=== PATIENT | female | born 1975 | race African-American/Black ===

== ENCOUNTER → 2019-12-02 12:12 | Outpatient (CLI) | payer OTHER, SELFPAY ==
--- NOTE | ~2019-12-02 | XR_ITS ---
XR hand RT min 3V DATE: 12/02/2019 12:46 INDICATION: Right hand pain, including third digit. No recent injury. TECHNIQUE: 3 views COMPARISON: None FINDINGS: There are 2 metallic foreign bodies of the distal second digit, the larger approximately 2 mm foreign body situated within the tuft of the distal phalanx with surrounding lucency and a smaller triangular pointed foreign body in the contiguous medial distal soft tissues. No periosteal reaction is noted. No fracture, dislocation, periosteal reaction or bone destruction is noted otherwise. No erosive alcala ge or chondrocalcinosis. IMPRESSION: Distal second digit foreign bodies Reviewed, dictated and finalized at location B. VERY ROOM CLERK
== END ==
PROVIDERS: PCP Family Medicine; Visit Provider Family Medicine
DX: S60.450A Superficial foreign body of right index finger, initial encounter (principal); X58.XXXA Exposure to other specified factors, initial encounter
CPT/HCPCS: 73130

== ENCOUNTER 2019-12-17 14:14 | Emergency (ER) | payer OTHER, SELFPAY ==
[2019-12-17 14:40] VITALS: BP 136/96; PULSE 91; RESP 16; TEMP 37.4; O2SAT 98
--- NOTE | 2019-12-17 14:56 | ED.SKABFB ---
HPI - Skin/Abscess/Foreign Bdy General Chief complaint: Skin/Abscess/Foreign Body Stated complaint: BUMP UNDER BREAST Time Seen by Provider: 12/17/19 14:17 Source: patient Mode of arrival: ambulatory Limitations: no limitations History of Present Illness HPI narrative: This is a 44 year old female that presents to the ER for bump on left breast that she noted this morning. Reports when she was taking her bra off this morning she noted an area of pain on her left breast. Reports a small lump in the area. Reports redness to the area. Denies fever or drainage. Related Data Home Medications Medication Instructions Recorded Confirmed albuterol sulfate 90 mcg/actuation 2 puff INHALATION Q4H PRN gm 09/30/19 12/02/19 aerosol inhaler amlodipine 10 mg tablet 10 mg PO DAILY 09/30/19 12/02/19 cetirizine 10 mg tablet 10 mg PO DAILY 09/30/19 12/02/19 fluticasone propionate 44 2 puff INHALATION BID gm 09/30/19 12/02/19 mcg/actuation HFA aerosol inhaler fluticasone propionate 50 1 spray NASAL BID 09/30/19 12/02/19 mcg/actuation nasal spray,suspension lansoprazole 30 mg capsule,delayed 30 mg PO DAILY 09/30/19 12/02/19 release metoprolol succinate 100 mg 100 mg PO DAILY 09/30/19 12/02/19 capsule sprinkle, ext. release 24 hr triamcinolone acetonide 0.5 % 1 applic TOPICAL BID 09/30/19 12/02/19 topical cream Allergies Allergy/AdvReac Type Severity Reaction Status Date / Time shellfish derived Allergy Unknown Unknown Verified 05/28/18 17:19 Review of Systems Review of Systems: Narrative: CONSTITUTIONAL: Denies fever BREAST: Reports lump. Denies nipple discharge All systems reviewed & are unremarkable except as noted in HPI and below PMFSH Past Medical History Medical History (Updated 12/17/19 @ 15:24 by Maria R Gomez PA-C) Carpal tunnel syndrome Chronic GERD Essential (primary) hypertension Moderate intermittent asthma without complication MAIKEL on CPAP Pain in right hand Social History Social History Smoking status: Never smoker Alcohol intake: never Exam Narrative: Exam Narrative: GENERAL: Well-appearing, well-nourished, and in no acute distress. HEAD: Normocephalic, atraumatic. EYES: EOMI. EXTREMITIES: Normal range of motion. No edema. SKIN: Warm, dry, no rash. NEURO: No focal deficits. Alert and oriented x3. PSYCH: Normal mood and affect BREAST: Left breast with small 2cm circular area of erythema and edema, no fluctuance to suggest abscess. No other abnormal masses noted Course Vital Signs Vital signs: Vital Signs Temperature 99.4 F 12/17/19 14:40 Pulse Rate 91 12/17/19 14:40 Respiratory Rate 16 12/17/19 14:40 Blood Pressure 136/96 H 12/17/19 14:40 Pulse Oximetry 98 12/17/19 14:40 Temperature 99.4 F 12/17/19 14:40 Pulse Rate 91 12/17/19 14:40 Respiratory Rate 16 12/17/19 14:40 Blood Pressure 136/96 H 12/17/19 14:40 Pulse Oximetry 98 12/17/19 14:40 MDM - Skin/Abscess/Foreign Bdy MDM Narrative Medical decision making narrative: Patient presents to the emergency department for small area of cellulitis to the left breast. Patient is afebrile and nontoxic-appearing. No fluctuance to suggest abscess. She will be started on oral antibiotics and was instructed to follow-up with gynecology. Patient was given warnings to return to the ER Critical Care Time Critical Care Time Critical Care Time: No Discharge Plan Discharge Clinical Impression: Cellulitis Qualifiers: Site of cellulitis: other site Qualified Code(s): L03.818 - Cellulitis of other sites Patient Disposition: Home, Self-Care Condition: Stable Instructions: Antibiotic Form, Cellulitis (ED) Additional Instructions: Return if symptoms worsen or concerns; any increase in redness, swelling, pain or fever over 101 Take antibiotics as directed. Clean wound with mild soapy water. Follow up with gynecology Prescripti
[2019-12-17 15:30] VITALS: BP 124/78; PULSE 68; RESP 16; O2SAT 99
== END 2019-12-17 15:30 | disposition home or self-care (01) ==
PROVIDERS: Emergency Provider Emergency Medicine; PCP Family Medicine
DX: L03.818 Cellulitis of other sites (principal); K21.9 Gastro-esophageal reflux disease without esophagitis; I10 Essential (primary) hypertension; J45.909 Unspecified asthma, uncomplicated; G47.30 Sleep apnea, unspecified
CPT/HCPCS: 99283

== ENCOUNTER 2020-02-12 09:48 | Outpatient (CLI) | payer OTHER, SELFPAY ==
--- NOTE | 2020-02-12 11:00 | NEURO_ITS ---
Patient Number: [id number] Impression: # Complains of numbness of right hand. # Severe right Carpal Tunnel Syndrome. # Mild right ulnar neuropathy across the elbow. # Normal needle/EMG exam. Nerve Conduction Studies Anti Sensory Summary Table Stim Site NR Peak (ms) P-T Amp (?V) Site1 Site2 Delta-P (ms) Dist (cm) Felix (m/s) Right Median Anti Sensory (2-3nd Digit) Wrist 6.8 60.7 Wrist 2-3nd Digit 6.8 14.0 21 Wrist 6.1 32.1 Wrist 2-3nd Digit 6.8 14.0 21 Right Radial Anti Sensory (Base 1st Digit) Wrist 2.2 20.3 Wrist Base 1st Digit 2.2 0.0 Right Ulnar Anti Sensory (5th Digit) Wrist 2.4 68.1 Wrist 5th Digit 2.4 14.0 58 Motor Summary Table Stim Site NR Onset (ms) O-P Amp (mV) Site1 Site2 Delta-0 (ms) Dist (cm) Felix (m/s) Right Median Motor (Abd Poll Brev) Wrist 5.9 4.9 Elbow Wrist 4.7 28.0 60 Elbow 10.6 4.6 Right Ulnar Motor (Abd Dig Minimi) Wrist 2.5 4.1 A Elbow Wrist 5.8 30.0 52 A Elbow 8.3 3.2 B Elbow Wrist 4.0 22.0 55 B Elbow 6.5 3.2 F Wave Studies NR F-Lat (ms) L-R F-Lat (ms) Right Median (Mrkrs) (Abd Poll Brev) 29.71 Right Ulnar (Mrkrs) (Abd Dig Min) 27.03 EMG Side Muscle Nerve Root Ins Act Fibs Amp Dur Recrt Comment Right 1stDorInt Ulnar C8-T1 Nml Nml Nml Nml Nml Right Ext Indicis Radial (Post Int) C7-8 Nml Nml Nml Nml Nml Right Ext Digitorum Radial (Post Int) C7-8 Nml Nml Nml Nml Nml Right BrachioRad Radial C5-6 Nml Nml Nml Nml Nml Right PronatorTeres Median C6-7 Nml Nml Nml Nml Nml Right Abd Poll Brev Median C8-T1 Nml Nml Nml Nml Nml MTDD
== END 2020-02-12 09:49 | disposition home or self-care (01) ==
PROVIDERS: PCP Family Medicine; Visit Provider Family Medicine
DX: G56.01 Carpal tunnel syndrome, right upper limb (principal); G56.21 Lesion of ulnar nerve, right upper limb
CPT/HCPCS: 95886; 95909

== ENCOUNTER 2020-04-29 14:52 | Outpatient (CLI) | payer OTHER, SELFPAY ==
--- NOTE | 2020-04-29 14:55 | ECG_ITS ---
Measurements Intervals [place] Rate: 76 P: 53 LA: 192 QRS: -1 QRSD: 101 T: 1 QT: 372 QTc: 419 Interpretive Statements SINUS RHYTHM VOLTAGE CRITERIA FOR LVH POOR R WAVE PROGRESSION, ANTERIOR LEADS BORDERLINE T WAVE ABNORMALITY- INFERIOR LEADS BASELINE ARTIFACT- I, II, III, AVR, AVL, AVF BORDERLINE ECG Electronically Signed On 04-29-2020 15:47:35 CDT by Spenser Meyer D.O.
[2020-04-29 15:43] LABS: Blood Urea Nitrogen 15 mg/dL (7-17); Calcium 8.8 mg/dL (8.4-10.2); Carbon Dioxide 30 mmol/L (22-30); Chloride 101 mmol/L (98-107); Estimated Glomerular Filt Rate > 60; Glucose 122 mg/dL (65-105); Potassium 3.9 mmol/L (3.4-5.0); Sodium 138 mmol/L (137-145)
== END 2020-04-29 14:53 | disposition home or self-care (01) ==
LOC: ANHSURGERY 14:55
PROVIDERS: Anesthesiology; PCP Family Medicine; Visit Provider Orthopaedic Surgery
DX: Z01.818 Encounter for other preprocedural examination (principal); Z51.81 Encounter for therapeutic drug level monitoring; I10 Essential (primary) hypertension
CPT/HCPCS: 36415; 80048; 93005

== ENCOUNTER 2020-05-05 01:50 | Outpatient (CLI) | payer OTHER, SELFPAY ==
[2020-05-05 19:16] LABS: SARS-CoV-2 RNA PCR Negative
== END 2020-05-05 01:51 | disposition home or self-care (01) ==
LOC: ANHCOVIDDT 01:53
PROVIDERS: PCP Family Medicine; Visit Provider Orthopaedic Surgery
DX: Z01.818 Encounter for other preprocedural examination (principal); Z11.59 Encounter for screening for other viral diseases
CPT/HCPCS: 87635; C9803; U0003

== ENCOUNTER 2020-05-07 00:57 | Day surgery (SDC) | payer OTHER, SELFPAY ==
[2020-04-24 11:22] VITALS: BMI 49.4
--- NOTE | 2020-05-05 17:33 | PM.IMHP ---
H&P: HPI History of Present Illness Chief complaint: right carpal tunnel syndrome Narrative: Kristen Elmore is a 44 year old female with right hand numbness and tingling, wrist pain. Unrelieved with conservative treatment. Presents for operative treatment. Review of Systems Constitutional: Constitutional: Denies fever(s) Eyes: Eyes: Denies blurry vision ENT: Reports Normal hearing present Cardiovascular: Cardiovascular: Denies chest pain and Denies dyspnea Respiratory: Respiratory: Denies dyspnea and Denies wheezing Gastrointestinal: Gastrointestinal: Denies abdominal pain Genitourinary: Genitourinary: Denies urinary urgency Musculoskeletal: Musculoskeletal: Reports as per HPI and Denies numbness Integumentary/Breasts: Skin/Breast: Denies changing lesions and Denies sores Neurologic: Reports Normal hearing present, Denies behavioral changes, Denies confusion, Denies numbness and Denies convulsions Psychiatric: Psychiatric: Denies behavioral changes, Denies confusion and Denies hallucinations Endocrine: Endocrine: Denies heat intolerance Hematologic/Lymphatic: Hematologic/Lymphatic: Denies easy bleeding Allergic/Immunologic: Allergic/Immunologic: Denies wheezing PMFSH Past Medical History Medical History Abscess of left breast Allergic conjunctivitis Anemia Asthma Bleeding nose Carpal tunnel syndrome Chronic GERD Essential (primary) hypertension Headache High blood pressure Hoarseness Mild intermittent asthma in adult without complication Moderate intermittent asthma without complication Obstructive sleep apnea MAIKEL on CPAP Pain in right hand Sleep apnea Vision changes Family History Family History Mother Patient's mother is , Onset Age: 67 Father Patient's father is , Onset Age: 42 Other Hypertension Other Cancer Social History Social History Smoking status: Never smoker Alcohol intake: never Additional living arrangements comments: Lives with Additional occupation/education comments: [employer] Gender identity (if verbalized by the patient): Female Spiritual care concerns: No Meds Home Medications and Allergies Home Medications Medication Instructions Recorded Confirmed Type amlodipine 10 mg tablet 10 mg PO DAILY 09/30/19 04/24/20 History fluticasone propionate 50 1 spray NASAL BID 09/30/19 04/24/20 History mcg/actuation nasal spray,suspension metoprolol succinate 100 mg 100 mg PO DAILY 09/30/19 04/24/20 History capsule sprinkle, ext. release 24 hr triamterene 37.5 1 tablet PO QAM #30 tablet 10/14/19 04/24/20 Rx mg-hydrochlorothiazide 25 mg tablet meloxicam 15 mg tablet 15 mg PO DAILY PRN #30 tablet 12/02/19 04/24/20 Rx montelukast 10 mg tablet 10 mg PO DAILY #30 tablet 12/02/19 04/24/20 Rx cetirizine 10 mg tablet 10 mg PO DAILY PRN 12/30/19 04/24/20 History triamcinolone acetonide 0.5 % 1 applic TOPICAL BID PRN 12/30/19 04/24/20 History topical cream azelastine 0.05 % eye drops 1 drop EACH EYE BID PRN #6 ml 03/04/20 04/24/20 Rx fluticasone propionate 44 2 puff INHALATION BID #10.6 gm 05/04/20 Rx mcg/actuation HFA aerosol inhaler albuterol sulfate 90 mcg/actuation 2 puff INHALATION Q4H PRN #18 gm 05/05/20 Rx aerosol inhaler Allergies Allergy/AdvReac Type Severity Reaction Status Date / Time shellfish derived Allergy Unknown ITCHING, Verified 04/24/20 11:23 DIFFICULTY BREATHING Exam Const: General: cooperative, healthy appearing, no acute distress, well developed and alert; No confusion Orientation/consciousness: No confusion HENMT: Head: normal to inspection, normocephalic and atraumatic Eyes: Conjunctivae: conjunctivae normal Sclera: sclerae normal Neck: Neck: supple and no
[2020-05-07] MEDS: LACTATED RINGERS 1,000 ML 30 ML IV CONT (06:45)
--- NOTE | 2020-05-07 06:46 | WPDANESEPPF ---
Anes - Initial Pre Proc Eval Procedure: Operation Date: 05/07/20 07:30 Proposed Procedures p Right Carpal Tunnel Release - Dayron Beckett MD Date/Time: 05/07/20 06:46 Surgeon: Dayron Beckett MD Pre Op Diagnosis: right carpal tunnel syndrome Patient Data Age: 44 Gender: F Height: 5 ft 2 in Weight: 120 kg Allergies Allergy/AdvReac Type Severity Reaction Status Date / Time shellfish derived Allergy Unknown ITCHING, Verified 05/07/20 06:10 DIFFICULTY BREATHING Home Medications Medication Instructions Recorded Confirmed Type amlodipine 10 mg tablet 10 mg PO DAILY 09/30/19 04/24/20 History fluticasone propionate 50 1 spray NASAL BID 09/30/19 04/24/20 History mcg/actuation nasal spray,suspension metoprolol succinate 100 mg 100 mg PO DAILY 09/30/19 04/24/20 History capsule sprinkle, ext. release 24 hr triamterene 37.5 1 tablet PO QAM #30 tablet 10/14/19 04/24/20 Rx mg-hydrochlorothiazide 25 mg tablet meloxicam 15 mg tablet 15 mg PO DAILY PRN #30 tablet 12/02/19 04/24/20 Rx montelukast 10 mg tablet 10 mg PO DAILY #30 tablet 12/02/19 04/24/20 Rx cetirizine 10 mg tablet 10 mg PO DAILY PRN 12/30/19 04/24/20 History triamcinolone acetonide 0.5 % 1 applic TOPICAL BID PRN 12/30/19 04/24/20 History topical cream azelastine 0.05 % eye drops 1 drop EACH EYE BID PRN #6 ml 03/04/20 04/24/20 Rx fluticasone propionate 44 2 puff INHALATION BID #10.6 gm 05/04/20 Rx mcg/actuation HFA aerosol inhaler albuterol sulfate 90 mcg/actuation 2 puff INHALATION Q4H PRN #18 gm 05/05/20 Rx aerosol inhaler Patient hx anesthesia problems: none Family hx anesthesia problems: none PMFSH Past Medical History Medical History Abscess of left breast Allergic conjunctivitis Anemia Asthma Bleeding nose Carpal tunnel syndrome Chronic GERD Essential (primary) hypertension Headache High blood pressure Hoarseness Mild intermittent asthma in adult without complication Moderate intermittent asthma without complication Obstructive sleep apnea MAIKEL on CPAP Pain in right hand Sleep apnea Vision changes Family History Family History Mother Patient's mother is , Onset Age: 67 Father Patient's father is , Onset Age: 42 Other Hypertension Other Cancer Social History Social History Smoking status: Never smoker Alcohol intake: never Additional living arrangements comments: Lives with Additional occupation/education comments: [employer] Gender identity (if verbalized by the patient): Female Spiritual care concerns: No Anes - Eval Final PreProcedure Day of Procedure 05/07/20 06:46 Patient weight: morbidly obese Heart: regular rate and rhythm Lungs: clear to auscultation Airway: Mallampati scale class II Neurological: alert and oriented Last oral intake: >/= 8 hours ASA classification: III Emergent: no Anesthetic plan: proceed Anesthesia type and monitoring: general GIVS and standard monitoring Informed Consent: The patient's anesthetic plan and its attendant risks and benefits were discussed with the patient/family/POA. Questions were solicited and answers provided to the satisfaction of the patient/family/POA.
[2020-05-07] MEDS: KETOROLAC 15 MG/ML VIAL (*BKC) IV PUSH (06:59)
[2020-05-07] MEDS: ACETAMINOPHEN 500 MG TABLET 1000 MG PO (06:59)
--- NOTE | 2020-05-07 07:06 | WPDHPUPDATE1 ---
History and Physical Update Update Date/Time: 05/07/20 07:06 History and Physical has been reviewed, including an updated exam of the patient. There are NO changes in the patient's condition. Risks, benefits, and alternatives have been discussed and questions answered. Patient agrees to proceed with procedure.
[2020-05-07 07:26] VITALS: BP 129/74; PULSE 66; RESP 18; TEMP 36.6; O2SAT 99
[2020-05-07] MEDS: ceFAZolin 3 GM/D5W 100 ML 100 ML IVPB (07:26)
[2020-05-07] MEDS: BUPIVACAINE/EPINEPHRINE 0.5% 30 ML VIAL 20 ML INFILTRATE (07:53)
[2020-05-07] MEDS: LIDOCAINE HCL 2% LOCAL INJ 20 ML VIAL INFILTRATE (07:53)
[2020-05-07 08:13] VITALS: BP 134/64; PULSE 73; RESP 16; O2SAT 95
--- NOTE | 2020-05-07 08:22 | P.OP_ITS ---
Procedure Note - Detailed Date of procedure: 05/07/20 Pre-op diagnosis: right carpal tunnel syndrome Post-op diagnosis: same Procedure performed: Right carpal tunnel release Description of procedure: Preoperative Diagnosis: Right Carpal Tunnel Syndrome (G56.02) Postoperative Diagnosis: Same Procedure: Right open carpal tunnel release ([id number]) Surgeon: Sujit Assist: Speech Correction Assistant Anesthesia: MAC, local Complications: None EBL: Minimal Operative Indications: The patient has history, exam findings, and electrodiagnostic findings consistent with carpal tunnel syndrome. Conservative treatment with bracing/ splinting, activity modifications, medication, ergonomics, injections has failed. Symptoms are daily and affect ability to use hand. The patient desires operative treatment. Procedure: After informed consent was given, the operative extremity was marked in the preoperative holding area. Intravenous antibiotics were given. The patient was taken to the operating room and underwent conscious sedation by the anesthesia team. A time-out was performed confirming patient, procedure, and operative site. Local infiltrate at the carpal tunnel was done with 0.5% marcaine. Prepping and draping was done using chloraprep skin solution with usual surgical sterile technique. Anatomic landmarks marked on skin. Hand was exsanguinated and arm tourniquet inflated to 225mmHg. Incision was made with #15 blade knife in skin crease on volar palm. Hemostasis was achieved with electrocautery. Careful dissection was carried down to the transverse carpal ligament. Retractors were placed. Ligament overlying median nerve was incised in line with skin incision using nondalton blade. Proximal and distal release was done with metzenbaum scissors under direct visualization. Mosquito clamp was placed deep to ligament to protect nerve during release. The nerve was inspected and noted to be intact with mild flattening. Tendons had good excursion. The tourniquet was then released and pressure held. Bleeding points were coa gulated with bovie cautery. The wound was thoroughly irrigated with antibiotic solution. The skin was closed with 4-0 nylon interrupted suture. A sterile dressing was applied. Good capillary refill in the fingers and thumb was noted. The patient was transported to the recovery room in stable condition. All sponge, needle, instrument counts were correct at the end of the case. Anesthesia: MAC Surgeon: Dayron Beckett MD Cadastral Surveyor: 1st conference assistant Estimated blood loss (mL): 2 Tourniquet time (min): 8 Drains: No Packing: No Pathology: none sent Complications: None Condition: stable Disposition: PACU
[2020-05-07 08:43] VITALS: BP 140/83; PULSE 86; RESP 16
[2020-05-07 09:08] VITALS: BP 125/71; PULSE 67; RESP 16
== END 2020-05-07 09:18 | disposition home or self-care (01) ==
PROVIDERS: PCP Family Medicine; Visit Provider Orthopaedic Surgery
PROC: (CPT 64721; principal; 2020-05-07 07:30)
DX: G56.01 Carpal tunnel syndrome, right upper limb (principal); I10 Essential (primary) hypertension; K21.9 Gastro-esophageal reflux disease without esophagitis; J45.20 Mild intermittent asthma, uncomplicated; G47.33 Obstructive sleep apnea (adult) (pediatric); E66.01 Morbid (severe) obesity due to excess calories; Z68.42 Body mass index [BMI] 45.0-49.9, adult
CPT/HCPCS: 64721; A9270; J0690; J1885; J2250; J2704; J3010; J7120

== ENCOUNTER 2021-02-01 13:54 | Outpatient (CLI) | payer OTHER, SELFPAY ==
--- NOTE | ~2021-02-01 | MMUS_ITS ---
EXAMINATION: MM diagnostic naga BI w leyla, US breast LT limited HISTORY: Prior lumps with resolution but residual skin color change. TECHNIQUE: ML, MLO and craniocaudal 3-D tomosynthesis images of both breasts were performed and synth etic 2-D images were generated. CAD analysis was submitted and interpreted. High resolution targeted right breast ultrasound was performed. COMPARISON: None BREAST PARENCHYMAL COMPOSITION: The breasts are almost entirely fatty. FINDINGS: MAMMOGRAPHIC FINDINGS: No suspicious mass or architectural distortion, malignant calcification, skin thickening or retractio n is detected. ULTRASOUND: There is no evidence of focal abnormal solid or cystic lesion in the vicinity of the clinical complai nt at 4:00-5:00 area. IMPRESSION: 1. No mammographic evidence of malignancy 2. Routine annual mammographic screening is recommended. BI-RADS Category 1: Negative Reviewed, dictated and finalized at location A. IMPRESSION: 1. No mammographic evidence of malignancy 2. Routine annual mammographic screening is recommended. BI-RADS Category 1: Negative
== END 2021-02-01 13:55 | disposition home or self-care (01) ==
LOC: ANHIMG 13:55
PROVIDERS: PCP Family Medicine; Visit Provider Family Medicine
DX: N63.0 Unspecified lump in unspecified breast (principal)
CPT/HCPCS: 76642; 77062; 77066; G0279